=== PATIENT | male | born 1995 | race Caucasian/White ===

== ENCOUNTER 2016-11-04 12:01 | Emergency (ER) | payer OTHER ==
[2016-11-04] MEDS ORDERED: Ondansetron 4 MG/2 ML SDV IVPUSH ONE (12:25)
[2016-11-04] MEDS ORDERED: Sodium Chloride 0.9% 2.5 ML Syringe FLUSH PRN (12:25)
[2016-11-04] MEDS ORDERED: Sodium Chloride 0.9% 10 ML Syringe FLUSH PRN (12:25)
[2016-11-04] MEDS ORDERED: Sodium Chloride 0.9% 1,000 ML IV ONE (12:25)
[2016-11-04] MEDS ORDERED: Ketorolac 30 MG/ML SDV IVPUSH ONE (12:25)
[2016-11-04] MEDS ORDERED: Pantoprazole 40 MG Vial IVPUSH ONE (12:28)
--- NOTE | 2016-11-04 12:28 | EDM.PDOC ---
ED HPI GENERAL MEDICAL PROBLEM - General Chief Complaint: Respiratory Problem Stated Complaint: PNUMONIA Time Seen by Provider: 11/04/16 12:02 - History of Present Illness INITIAL COMMENTS - FREE TEXT/NARRATIVE: HISTORY AND PHYSICAL: History of present illness: Patient 21-year-old white male with no significant past medical history presents with a concern of fever myalgia cough epigastric discomfort or last several days he's had no documented fever he denies vomiting diarrhea urinary symptoms or other complaints Review of systems: As per history of present illness and below otherwise all systems reviewed and negative. Past medical history: As per history of present illness and as reviewed below otherwise noncontributory. Surgical history: As per history of present illness and as reviewed below otherwise noncontributory. Social history: No reported history of drug or alcohol abuse. Family history: As per history of present illness and as reviewed below otherwise noncontributory. Physical exam: HEENT: Atraumatic, normocephalic, pupils reactive, negative for conjunctival pallor or scleral icterus, mucous membranes dry, throat clear, neck supple, nontender, trachea midline. Lungs: Clear to auscultation, breath sounds equal bilaterally, chest nontender. Heart: S1S2, regular, negative for clicks, rubs, or JVD. Abdomen: Soft, nondistended, mild epigastric tenderness no rebound no guarding. Negative for masses or hepatosplenomegaly. Negative for costovertebral tenderness. Pelvis: Stable nontender. Genitourinary: Deferred. Rectal: Deferred. Extremities: Atraumatic, negative for cords or calf pain. Neurovascular unremarkable. Neuro: Awake, alert, oriented. Cranial nerves II through XII unremarkable. Cerebellum unremarkable. Motor and sensory unremarkable throughout. Exam nonfocal. Diagnostics: CBC CMP UA amylase lipase chest x-ray EKG Therapeutics: Normal saline 1 L bolus Toradol 30 mg IV Zofran 4 mg IV Protonix 80 mg IV Impression: #1 pneumonitis #2 abdominal pain #3 dehydration Definitive disposition and diagnosis as appropriate pending reevaluation and review of above. Middle Chest Pain Score (Numeric/FACES): 5 - Related Data Allergies Allergy/AdvReac Type Severity Reaction Status Date / Time No Known Allergies Allergy Verified 11/04/16 12:24 Past Medical History HEENT History: Reports: None Cardiovascular History: Reports: None Gastrointestinal History: Reports: None - Infectious Disease History Infectious Disease History: Reports: None - Past Surgical History HEENT Surgical History: Reports: None Social & Family History - Tobacco Use Smoking Status *Q: Current Every Day Smoker Years of Tobacco use: 2 Packs/Tins Daily: 1 ED ROS GENERAL - Review of Systems Review Of Systems: ROS reveals no pertinent complaints other than HPI. ED EXAM, GENERAL - Physical Exam Exam: See Below (See dictation) Course - Vital Signs Last Recorded V/S: Last Vital Signs Temp 36.5 C 11/04/16 12:20 Pulse 92 11/04/16 12:20 Resp 20 11/04/16 12:20 BP 115/72 11/04/16 12:20 Pulse Ox 98 11/04/16 12:20 - Orders/Labs/Meds Orders: Active Orders 24 hr Category Date Time Status EKG Documentation Completion [RC] STAT Care 11/04/16 12:25 Active Chest 2V [CR] Stat Exams 11/04/16 12:25 Taken CULTURE BLOOD [BC] Stat Lab 11/04/16 12:50 Received CULTURE BLOOD [BC] Stat Lab 11/04/16 13:05 Received Sodium Chloride 0.9% [Saline Flush] Med 11/04/16 12:25 Active 10 ml FLUSH ASDIRECTED PRN Sodium Chloride 0.9% [Saline Flush] Med 11/04/16 12:25 Active 2.5 ml FLUSH ASDIRECTED PRN Blood Culture x2 Reflex Set [OM.PC] Stat Oth 11/04/16 12:25 Ordered Saline Lock Insert [OM.PC] Stat Oth 11/04/16 12:25 Ordered Medication Orders Sodium Chloride (Saline Flush) 10 ml FLUSH ASDIRECTED PRN PRN Reason: Keep Vein Open Sodium Chloride (Saline Flush) 2.5 ml FLUSH ASDIRECTED PRN PRN Reason: Keep Vein Open Labs: Laboratory Tests 11/04/16 11/04/16 11/04/16 Range/Units 12:35 12:50 12:50 WBC 7.79 (4.0-11.0) K/uL RBC 5.34 (4.50-5.90) M/uL Hgb 16.9 (13.0-17.0) g/dL Hct 48.5 (38.0-50.0) % MCV 90.8 (80.0-98.0) fL MCH 31.6 (27.0-32.0) pg MCHC 34.8 (31.0-37.0) g/dL RDW Std Deviation 43.5 (28.0-62.0) fl RDW Coeff of Prerna 13 (11.0-15.0) % Plt Count 181 (150-400) K/uL MPV 9.40 (7.40-12.00) fL Neut % (Auto) 70.2 (48.0-80.0) % Lymph % (Auto) 22.1 (16.0-40.0) % [place] % (Auto) 6.3 (0.0-15.0) % Eos % (Auto) 1.3 (0.0-7.0) % Baso % (Auto) 0.1 (0.0-1.5) % Neut # (Auto) 5.5 (1.4-5.7) K/uL Lymph # (Auto) 1.7 (0.6-2.4) K/uL [place] # (Auto) 0.5 (0.0-0.8) K/uL Eos # (Auto) 0.1 (0.0-0.7) K/uL Baso # (Auto) 0.0 (0.0-0.1) K/uL Nucleated RBC % 0.0 /100WBC Nucleated RBCs # 0 K/uL INR 1.09 (0.86-1.11) Sodium (136-146) mmol/L Potassium (3.5-5.1) mmol/L Chloride (98-110) mmol/L Carbon Dioxide (21-31) mmol/L BUN (6.0-23.0) mg/dL Creatinine (0.6-1.5) mg/dL Est Cr Clr Drug Dosing mL/min Estimated GFR (MDRD) ml/min Glucose (60-110) mg/dL Calcium (8.8-10.8) mg/dL Total Bilirubin (0.1-1.5) mg/dL AST (5-40) IU/L ALT (8-54) IU/L Alkaline Phosphatase (40-150) Total Protein (6.0-8.0) g/dL Albumin (3.5-5.0) g/dL Globulin (2.0-3.5) g/dL Albumin/Globulin Ratio (1.3-2.8) Amylase (10-90) U/L Lipase (7-80) U/L Urine Color YELLOW Urine Appearance CLOUDY Urine pH 8.0 (5.0-8.0) Ur Specific [place] 1.015 (1.001-1.035) Urine Protein NEGATIVE (NEGATIVE) mg/dL Urine Glucose (UA) NEGATIVE (NEGATIVE) mg/dL Urine Ketones NEGATIVE (NEGATIVE) mg/dL Urine Occult Blood NEGATIVE (NEGATIVE) Urine Nitrite NEGATIVE (NEGATIVE) Urine Bilirubin NEGATIVE (NEGATIVE) Urine Urobilinogen 1.0 (<2.0) EU/dL Ur Leukocyte Esterase NEGATIVE (NEGATIVE) Urine RBC NONE SEEN (0-2/HPF) Urine WBC 0-1 (0-5/HPF) Ur Epithelial Cells RARE (NONE-FEW) Amorphous Sediment HEAVY (NEGATIVE) Urine Bacteria RARE (NEGATIVE) 11/04/16 Range/Units 12:50 WBC (4.0-11.0) K/uL RBC (4.50-5.90) M/uL Hgb (13.0-17.0) g/dL Hct (38.0-50.0) % MCV (80.0-98.0) fL MCH (27.0-32.0) pg MCHC (31.0-37.0) g/dL RDW Std Deviation (28.0-62.0) fl RDW Coeff of Prerna (11.0-15.0) % Plt Count (150-400) K/uL MPV (7.40-12.00) fL Neut % (Auto) (48.0-80.0) % Lymph % (Auto) (16.0-40.0) % [place] % (Auto) (0.0-15.0) % Eos % (Auto) (0.0-7.0) % Baso % (Auto) (0.0-1.5) % Neut # (Auto) (1.4-5.7) K/uL Lymph # (Auto) (0.6-2.4) K/uL [place] # (Auto) (0.0-0.8) K/uL Eos # (Auto) (0.0-0.7) K/uL Baso # (Auto) (0.0-0.1) K/uL Nucleated RBC % /100WBC Nucleated RBCs # K/uL INR (0.86-1.11) Sodium 142 (136-146) mmol/L Potassium 3.8 (3.5-5.1) mmol/L Chloride 105 (98-110) mmol/L Carbon Dioxide 28 (21-31) mmol/L BUN 10 (6.0-23.0) mg/dL Creatinine 0.9 (0.6-1.5) mg/dL Est Cr Clr Drug Dosing 141.61 mL/min Estimated GFR (MDRD) > 60.0 ml/min Glucose 76 (60-110) mg/dL Calcium 10.2 (8.8-10.8) mg/dL Total Bilirubin 0.6 (0.1-1.5) mg/dL AST 22 (5-40) IU/L ALT 14 (8-54) IU/L Alkaline Phosphatase 67 (40-150) Total Protein 7.6 (6.0-8.0) g/dL Albumin 4.8 (3.5-5.0) g/dL Globulin 2.8 (2.0-3.5) g/dL Albumin/Globulin Ratio 1.7 (1.3-2.8) Amylase 31 (10-90) U/L Lipase 18 (7-80) U/L Urine Color Urine Appearance Urine pH (5.0-8.0) Ur Specific [place] (1.001-1.035) Urine Protein (NEGATIVE) mg/dL Urine Glucose (UA) (NEGATIVE) mg/dL Urine Ketones (NEGATIVE) mg/dL Urine Occult Blood (NEGATIVE) Urine Nitrite (NEGATIVE) Urine Bilirubin (NEGATIVE) Urine Urobilinogen (<2.0) EU/dL Ur Leukocyte Esterase (NEGATIVE) Urine RBC (0-2/HPF) Urine WBC (0-5/HPF) Ur Epithelial Cells (NONE-FEW) Amorphous Sediment (NEGATIVE) Urine Bacteria (NEGATIVE) Meds: Medications Generic Name Dose Route Start Last Admin Trade Name Freq PRN Reason Stop Dose Admin Sodium Chloride 10 ml 11/04/16 12:25 Saline Flush FLUSH ASDIRECTED PRN Keep Vein Open Sodium Chloride 2.5 ml 11/04/16 12:25 Saline Flush FLUSH ASDIRECTED PRN Keep Vein Open Discontinued Medications Generic Name Dose Route Start Last Admin Trade Name Freq PRN Reason Stop Dose Admin Sodium Chloride 1,000 mls @ 999 mls/hr 11/04/16 12:25 11/04/16 13:03 Normal Saline IV 11/04/16 13:25 999 mls/hr STAT ONE Administration Ketorolac Tromethamine 30 mg 11/04/16 12:25 11/04/16 13:00 Toradol IVPUSH 11/04/16 12:26 30 mg ONETIME ONE Administration Ondansetron HCl 4 mg 11/04/16 12:25 11/04/16 13:01 Zofran IVPUSH 11/04/16 12:26 4 mg ONETIME ONE Administration Pantoprazole Sodium 80 mg 11/04/16 12:28 11/04/16 13:02 Protonix Iv IVPUSH 11/04/16 12:29 80 mg .BOLUS ONE Administration Departure - Departure Time of Disposition: 14:21 Disposition: Home, Self-Care 01 Condition: Good Clinical Impression: Viral illness, Epigastric abdominal pain, Dehydration - Discharge Information Referrals: PCP,None [Primary Care Provider] - Forms: ED Department Discharge Additional Instructions: The following information is given to patients seen in the emergency department who are being discharged to home. This information is to outline your options for follow-up care. We provide all patients seen in our emergency department with a follow-up referral. The need for follow-up, as well as the timing and circumstances, are variable depending upon the specifics of your emergency department visit. If you don't have a primary care physician on staff, we will provide you with a referral. We always advise you to contact your personal physician following an emergency department visit to inform them of the circumstance of the visit and for follow-up with them and/or the need for any referrals to a consulting specialist. The emergency department will also refer you to a specialist when appropriate. This referral assures that you have the opportunity for followup care with a specialist. All of these measure are taken in an effort to provide you with optimal care, which includes your followup. Under all circumstances we always encourage you to contact your private physician who remains a resource for coordinating your care. When calling for followup care, please make the office aware that this follow-up is from your recent emergency room visit. If for any reason you are refused follow-up, please contact the [facility] emergency department at and asked to speak to the emergency department charge nurse. BRADLY [facility] [address] [place] [phone] Protonix as prescribed push fluids Motrin or Tylenol as directed follow-up primary medical doctor and/or clinic above as discussed return as needed as discussed - My Orders Last 24 Hours: My Active Orders 11/04/16 12:25 EKG Documentation Completion [RC] STAT Chest 2V [CR] Stat Sodium Chloride 0.9% [Saline Flush] 10 ml FLUSH ASDIRECTED PRN Sodium Chloride 0.9% [Saline Flush] 2.5 ml FLUSH ASDIRECTED PRN Blood Culture x2 Reflex Set [OM.PC] Stat Saline Lock Insert [OM.PC] Stat 11/04/16 12:50 CULTURE BLOOD [BC] Stat 11/04/16 13:05 CULTURE BLOOD [BC] Stat - Assessment/Plan Last 24 Hours: My Active Orders 11/04/16 12:25 EKG Documentation Completion [RC] STAT Chest 2V [CR] Stat Sodium Chloride 0.9% [Saline Flush] 10 ml FLUSH ASDIRECTED PRN Sodium Chloride 0.9% [Saline Flush] 2.5 ml FLUSH ASDIRECTED PRN Blood Culture x2 Reflex Set [OM.PC] Stat Saline Lock Insert [OM.PC] Stat 11/04/16 12:50 CULTURE BLOOD [BC] Stat 11/04/16 13:05 CULTURE BLOOD [BC] Stat
[2016-11-04 13:21] LABS: CHLORIDE,CL 105 mmol/L (98-110); SODIUM,NA 142 mmol/L (136-146)
[2016-11-04 19:45] VITALS: BP 123/72
--- NOTE | 2016-11-06 11:52 | CR ---
EXAM DATE: 11/04/16 PATIENT'S AGE: 21 Patient: SUSANA LYNCH Facility: [place], [place] Site . Site : 1995 Study: XRay Chest [id number]/[id number] 1:37:03 PM Ordering Physician: Karina Rodriguez Final Report: INDICATION: Chest pain TECHNIQUE: Two view chest. FINDINGS: The lungs are clear. The heart, mediastinum and pulmonary vessels are of normal size. There is no evidence of pleural disease. IMPRESSION: Negative chest. Dictated by Arely Rehman MD @ Nov 04 2016 1:56PM (Electronic Signature) Report Signed by Proxy. [facility]
== END 2016-11-04 14:36 | disposition home or self-care (01) ==
LOC: MW.ED 12:01
DX: J18.9 Pneumonia, unspecified organism (principal); E86.0 Dehydration; R10.13 Epigastric pain; B34.9 Viral infection, unspecified; F17.210 Nicotine dependence, cigarettes, uncomplicated
CPT/HCPCS: 36415; 71020; 80053; 81001; 82150; 83690; 85025; 85610; 87040; 93005; 96361; 96374; 96375; 99285; C9113; J1885; J2405; J7040; 99283

== ENCOUNTER 2017-11-07 00:33 | Emergency (ER) | payer OTHER ==
[2017-11-07] MEDS ORDERED: Sodium Chloride 0.9% 10 ML Syringe FLUSH PRN (00:39)
[2017-11-07] MEDS ORDERED: LORazepam 2 MG/ML SDV IVPUSH ONE (00:39)
[2017-11-07] MEDS ORDERED: Sodium Chloride 0.9% 2.5 ML Syringe FLUSH PRN ×2 (00:39)
[2017-11-07 00:44] VITALS: BP 123/85
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
[2017-11-07 01:17] LABS: CHLORIDE,CL 105 mmol/L (98-107); SODIUM,NA 141 mmol/L (136-148)
--- NOTE | 2017-11-07 12:56 | CR ---
EXAM DATE: 11/07/17 PATIENT'S AGE: 22 Patient: SUSANA LYNCH Facility: [place], [place] Site . Site : [id number] Study: XRay Chest [id number] 1:24:03 AM Ordering Physician: Miguel Holloway Final Report: INDICATION: CHEST PAIN. HX OF PERICARDITIS TECHNIQUE: Chest 1 view. COMPARISON: 11/04/16. FINDINGS: Cardiovascular and mediastinum: Heart size and vasculature are normal in caliber and appearance. Mediastinum is within normal limits. Lungs and pleural space: Lungs are clear. No sign of infiltrate or mass. No sign of pleural effusion. No pneumothorax. Bones and soft tissues: No significant findings. IMPRESSION: Unremarkable chest. Dictated by: Quang Galicia MD @ 11/07/2017 01:34:30 (Electronic Signature) Report Signed by Proxy. [facility] CENTERDeya
== END 2017-11-07 02:15 | disposition home or self-care (01) ==
LOC: MW.ED 00:33
DX: R09.1 Pleurisy (principal)
CPT/HCPCS: 36415; 71045; 80053; 80305; 81001; 82550; 84484; 85025; 85610; 85652; 86140; 87086; 93005; 96374; 99285; G0480; J2060; 99284

== ENCOUNTER 2018-07-17 20:13 | Emergency (ER) | payer SELFPAY ==
[2018-07-17] MEDS ORDERED: Ondansetron 4 MG/2 ML SDV ONE (20:26)
[2018-07-17] MEDS ORDERED: Morphine 2 MG/ML Syringe ONE (20:26)
[2018-07-17] MEDS ORDERED: Bupivacaine 0.5% 10 ML SDV ONE (20:38)
[2018-07-17] MEDS ORDERED: Morphine 2 MG/ML Syringe IVPUSH ONE (20:39)
[2018-07-17] MEDS ORDERED: Bupivacaine 0.5% 10 ML SDV INJECT ONE (20:40)
[2018-07-17] MEDS ORDERED: Ondansetron 4 MG/2 ML SDV IVPUSH ONE (20:40)
[2018-07-17] MEDS ORDERED: Bacitracin Oint 1 GM U/D Packet ONE (21:04)
--- NOTE | 2018-07-17 21:05 | CR ---
Indication: Crush injury Technique: Three views right Comparison: None Findings: Bones: Alignment is normal. No fractures or bone lesions. Joint spaces: Unremarkable. Soft tissues: Soft tissue loss of the right 3rd finger tip. Impression: Soft tissue loss at the right 3rd finger tip. No acute osseous abnormality. Dictated by Kimberly Chacon MD @ Jul 17 2018 9:02PM Signed by Dr. Kimberly Chacon @ Jul 17 2018 9:04PM
[2018-07-17] MEDS ORDERED: Bacitracin Oint 1 GM U/D Packet TOP ONE (21:20)
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
[2018-07-17 22:49] VITALS: BP 117/82
== END 2018-07-17 21:59 | disposition home or self-care (01) ==
LOC: MW.ED 20:13
DX: S68.612A Complete traumatic transphalangeal amputation of right middle finger, initial encounter (principal); F17.210 Nicotine dependence, cigarettes, uncomplicated; W20.8XXA Other cause of strike by thrown, projected or falling object, initial encounter; Y99.0 Civilian activity done for income or pay
CPT/HCPCS: 64450; 73130; 96374; 96375; 99283; J2001; J2270; J2405; J3490